=== PATIENT | female | born 1940 | race African-American/Black ===

== ENCOUNTER 2019-06-10 23:09 | Emergency (ER) | payer MEDICARE ==
[~2019-06-10] VITALS: Ht 175.3 cm; Wt 118.0 kg
[2019-06-10] MEDS ORDERED: HYDROCODONE/ACETAMINOPHEN 5/325MG TABLET PO STA (23:53)
[2019-06-11 00:32] LABS: BASOPHILS % 0.6 % (0.0-2.0); EOSINOPHILS % 2.4 % (0.0-5.0); HEMATOCRIT. 34.7 % (36.0-48.0); HEMOGLOBIN. 10.5 g/dL (12.0-16.0); LYMPHOCYTES % 13.5 % (20.0-50.0); MEAN CORPUSCULAR HEMOGLOBIN 23.8 pg (28.0-32.0); MEAN PLATELET VOLUME 9.1 fl (7.4-10.4); MONOCYTES % 9.3 % (2.0-8.0); NEUTROPHILS % 74.2 % (40.0-76.0); PLATELET 128 x1000/uL (130-400); RED CELL DISTRIBUTION WIDTH 16.1 % (11.6-14.6)
[2019-06-11] MEDS ORDERED: KETOROLAC 15MG/ML VIAL IM ONE (03:15)
[2019-06-11 04:48] VITALS: BP 176/82
== END 2019-06-11 06:02 | disposition home or self-care (01) ==
LOC: ER 23:09
DX: S91.209A Unspecified open wound of unspecified toe(s) with damage to nail, initial encounter (principal); J44.9 Chronic obstructive pulmonary disease, unspecified; I50.9 Heart failure, unspecified; I51.9 Heart disease, unspecified; I51.7 Cardiomegaly; Z88.8 Allergy status to other drugs, medicaments and biological substances; W19.XXXA Unspecified fall, initial encounter; Y93.89 Activity, other specified; Y92.89 Other specified places as the place of occurrence of the external cause; Y99.8 Other external cause status
CPT/HCPCS: 36415; 71045; 73562; 73630; 80048; 85025; 93005; 96372; 99284; J1885

== ENCOUNTER 2019-08-26 13:45 | Emergency (ER) | payer MEDICARE ==
[~2019-08-26] VITALS: Ht 162.6 cm; Wt 100.0 kg
[2019-08-26] MEDS ORDERED: ONDANSETRON HCL 4MG/2ML INJ IV ONE (14:45)
[2019-08-26 15:23] LABS: HEMATOCRIT. 46.8 % (36.0-48.0); MEAN CORPUSCULAR HEMOGLOBIN 23.1 pg (28.0-32.0); MEAN CORPUSCULAR VOLUME 77.1 fL (81.0-99.0); MEAN PLATELET VOLUME 9.1 fl (7.4-10.4); PLATELET 244 x1000/uL (130-400); RED BLOOD CELL COUNT 6.07 mill/uL (4.2-5.4); RED CELL DISTRIBUTION WIDTH 17.1 % (11.6-14.6)
[2019-08-26 15:31] LABS: CHLORIDE 109 mEq/L (98-107); INR 1.2; PROTHROMBIN TIME 12.7 sec (9.6-11.0)
[2019-08-26 15:38] LABS: ETHANOL BLOOD < 10 mg/dL
[2019-08-26 15:42] LABS: CREATINE KINASE 230 IU/L (26-192)
[2019-08-26 15:50] LABS: PLATELET ESTIMATE NORMAL
[2019-08-26] MEDS ORDERED: FUROSEMIDE 20MG/2ML VIAL IVP ONE (16:00)
[2019-08-26 17:47] LABS: CLARITY URINE TURBID (CLEAR); COLOR URINE YELLOW (YELLOW); KETONES URINE TRACE (NEGATIVE); LEUKOCYTE ESTERASE URINE 3+ (NEGATIVE); NITRITE URINE NEGATIVE (NEGATIVE); OCCULT BLOOD URINE NEGATIVE (NEGATIVE); PH URINE 5.5 (4.5-8.0); PROTEIN URINE TRACE (NEGATIVE); SPECIFIC GRAVITY URINE 1.015 (1.005-1.030)
[2019-08-26] MEDS ORDERED: DEXT 5%/0.45% NACL 1000ML 1,000 ML IV SCH (17:50)
[2019-08-26] MEDS ORDERED: GUAIFENESIN 200MG/10ML SUGAR FREE UDC PO PRN (18:00)
[2019-08-26] MEDS ORDERED: DIPHENHYDRAMINE 50MG/ML VIAL IV PRN (18:00)
[2019-08-26] MEDS ORDERED: ENOXAPARIN 40MG/0.4ML SYR SUBCUT SCH (18:00)
[2019-08-26] MEDS ORDERED: NA PHOS,M-B/NA PHOS,DI-BA ENEMA 118ML PR PRN (18:00)
[2019-08-26] MEDS ORDERED: DOCUSATE SODIUM 100MG CAPSULE PO PRN (18:00)
[2019-08-26] MEDS ORDERED: ACETAMINOPHEN 650MG SUPP PR PRN (18:00)
[2019-08-26] MEDS ORDERED: ACETAMINOPHEN 325MG TABLET PO PRN (18:00)
[2019-08-26] MEDS ORDERED: ACETAMINOPHEN 650MG/20.3ML UDC GT PRN (18:00)
[2019-08-26] MEDS ORDERED: IPRATROPIUM/ALBUTEROL 0.5-3(2.5)MG/3ML NEB HHN PRN (18:00)
[2019-08-26 18:06] LABS: *AMPHETAMINES SCREEN URINE NEGATIVE (NEGATIVE); *BARBITURATES SCREEN URINE NEGATIVE (NEGATIVE); *BENZODIAZEPINES SCREEN URINE PRESUMTIVE POSITIVE (NEGATIVE); *COCAINE SCREEN URINE NEGATIVE (NEGATIVE); METHADONE URINE SCREEN NEGATIVE (NEGATIVE)
[2019-08-26 18:07] LABS: CANNABINOID URINE SCREEN NEGATIVE (NEGATIVE); OPIATES URINE SCREEN PRESUMTIVE POSITIVE (NEGATIVE); PHENCYCLIDINE URINE SCREEN NEGATIVE (NEGATIVE)
[2019-08-26 20:50] VITALS: BP 124/56
[2019-08-26] MEDS ORDERED: SODIUM CHLORIDE 0.9% INJ 3ML FLUSH IVF SCH (22:00)
== END 2019-08-26 20:50 | disposition short-term general hospital (02) ==
LOC: ER 13:45 → CANBEDREQ 17:50 → ER 20:50
DX: R53.1 Weakness (principal); I13.0 Hypertensive heart and chronic kidney disease with heart failure and stage 1 through stage 4 chronic kidney disease, or unspecified chronic kidney disease; E11.22 Type 2 diabetes mellitus with diabetic chronic kidney disease; N18.9 Chronic kidney disease, unspecified; I50.9 Heart failure, unspecified; I48.91 Unspecified atrial fibrillation
CPT/HCPCS: 36415; 70450; 71045; 80053; 80305; 80320; 81003; 82140; 82550; 83690; 83880; 84484; 85025; 85610; 87077; 87086; 87186; 93005; 96374; 99285; J1940; J2405; G0480